=== PATIENT | female | born 1980 | race Caucasian/White ===

== ENCOUNTER 2024-10-19 08:09 | Observation (INO) | payer OTHER ==
--- OUTSIDE RECORDS SUMMARY | 2024-10-19 08:14 | XMS REPORT | Continuity of Care Document ---
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 19:53:00 130 mm[Hg] Priya Seybold - External Diastolic blood pressure 2023-05-03 19:53:00 94 mm[Hg] Priya Seybold - External Heart rate 2023-05-03 19:53:00 47 /min Priya Seybold - External Body temperature 2023-05-03 19:53:00 37.22 Monica Priya Seybold - External Respiratory rate 2023-05-03 19:53:00 20 /min Priya Seybold - External Body height 2023-05-03 19:53:00 167.6 cm Priya Seybold - External Body weight 2023-05-03 19:53:00 99.791 kg Pryia Seybold - External BMI 2023-05-03 19:53:00 35.51 kg/m2 Priya Seybold - External Oxygen saturation in Arterial blood by Pulse oximetry 2023-05-03 19:53:00 100 /min Priya Seybold - External Systolic blood pressure 2023-04-26 15:45:00 124 mm[Hg] Priya Seybold - External Diastolic blood pressure 2023-04-26 15:45:00 82 mm[Hg] Priya Seybold - External Heart rate 2023-04-26 15:45:00 79 /min Priya Seybold - External Body temperature 2023-04-26 15:45:00 36.5 Monica Priya Seybold - External Respiratory rate 2023-04-26 15:45:00 16 /min Priya Seybold - External Body height 2023-04-26 15:45:00 167.6 cm Priya Seybold - External Body weight 2023-04-26 15:45:00 98.158 kg Priya Seybold - External BMI 2023-04-26 15:45:00 34.93 kg/m2 Priya Seybold - External Oxygen saturation in Arterial blood by Pulse oximetry 2023-04-26 15:45:00 100 /min Priya Seybold - External Systolic blood pressure 2023-04-08 20:19:00 134 mm[Hg] Priya Seybold - External Diastolic blood pressure 2023-04-08 20:19:00 86 mm[Hg] Priya Seybold - External Heart rate 2023-04-08 20:19:00 87 /min Priya Seybold - External Body temperature 2023-04-08 20:19:00 36.11 Monica Priya Seybold - External Respiratory rate 2023-04-08 20:19:00 20 /min Priya Seybold - External Body height 2023-04-08 20:19:00 167.6 cm Priya Seybold - External Body weight 2023-04-08 20:19:00 100.245 kg Priya Seybold - External BMI 2023-04-08 20:19:00 35.67 kg/m2 Priya Seybold - External Oxygen saturation in Arterial blood by Pulse oximetry 2023-04-08 20:19:00 99 /min Priya Seybold - External Systolic blood pressure 2023-03-21 22:00:00 132 mm[Hg] Priya Seybold - External Diastolic blood pressure 2023-03-21 22:00:00 87 mm[Hg] Priya Seybold - External Heart rate 2023-03-21 22:00:00 80 /min Priya Seybold - External Body temperature 2023-03-21 22:00:00 36.83 Monica Priya Seybold - External Respiratory rate 2023-03-21 22:00:00 20 /min Priya Seybold - External Body height 2023-03-21 22:00:00 167.6 cm Priya Seybold - External Body weight 2023-03-21 22:00:00 102.059 kg Priya Seybold - External BMI 2023-03-21 22:00:00 36.32 kg/m2 Priya Seybold - External Oxygen saturation in Arterial blood by Pulse oximetry 2023-03-21 22:00:00 99 /min Priya Seybold - External Systolic blood pressure 2022-08-13 14:05:00 127 mm[Hg] Priya Seybold - External Diastolic blood pressure 2022-08-13 14:05:00 65 mm[Hg] Priya Seybold - External Heart rate 2022-08-13 14:05:00 76 /min Priya Seybold - External Body temperature 2022-08-13 14:05:00 37.11 Monica Priya Seybold - External Respiratory rate 2022-08-13 14:05:00 15 /min Priya Seybold - External Body height 2022-08-13 14:05:00 167.6 cm Priya Seybold - External Body weight 2022-08-13 14:05:00 108.41 kg Priya Seybold - External BMI 2022-08-13 14:05:00 38.58 kg/m2 Priya Seybold - External Oxygen saturation in Arterial blood by Pulse oximetry 2022-08-13 14:05:00 97 /min Priya Seybold - External Systolic blood pressure 2022-05-19 16:16:00 124 mm[Hg] Pirya Seybold - External Diastolic blood pressure 2022-05-19 16:16:00 79 mm[Hg] Priya Seybold - External Heart rate 2022-05-19 16:16:00 71 /min Priya Seybold - External Body temperature 2022-05-19 16:16:00 36.56 Monica Priya Seybold - External Respiratory rate 2022-05-19 16:16:00 14 /min Priya Seybold - External Body height 2022-05-19 16:16:00 167.6 cm Priya Seybold - External Body weight 2022-05-19 16:16:00 112.492 kg Priya Seybold - External BMI 2022-05-19 16:16:00 40.03 kg/m2 Priya Seybold - External Oxygen saturation in Arterial blood by Pulse oximetry 2022-05-19 16:16:00 99 /min Priya Seybold - External Systolic blood pressure 2022-05-14 14:09:00 120 mm[Hg] Priya Seybold - External Diastolic blood pressure 2022-05-14 14:09:00 79 mm[Hg] Priya Seybold - External Heart rate 2022-05-14 14:09:00 79 /min Priya Seybold - External Body temperature 2022-05-14 14:09:00 37.06 Monica Priya Seybold - External Respiratory rate 2022-05-14 14:09:00 14 /min Priya Seybold - External Body height 2022-05-14 14:09:00 167.6 cm Priya Seybold - External Body weight 2022-05-14 14:09:00 113.49 kg Priya Seybold - External BMI 2022-05-14 14:09:00 40.38 kg/m2 Priya Seybold - External Oxygen saturation in Arterial blood by Pulse oximetry 2022-05-14 14:09:00 99 /min Priya Seybold - External Systolic blood pressure 2022-04-16 14:10:00 138 mm[Hg] Priya Seybold - External Diastolic blood pressure 2022-04-16 14:10:00 90 mm[Hg] Priya Seybold - External Heart rate 2022-04-16 13:49:00 69 /min Priya Seybold - External Body temperature 2022-04-16 13:49:00 36.61 Monica Priya Seybold - External Respiratory rate 2022-04-16 13:49:00 14 /min Priya Seybold - External Body height 2022-04-16 13:49:00 167.6 cm Priya Seybold - External Body weight 2022-04-16 13:49:00 113.581 kg Priya Seybold - External BMI 2022-04-16 13:49:00 40.42 kg/m2 Priya Seybold - External Oxygen saturation in Arterial blood by Pulse oximetry 2022-04-16 13:49:00 99 /min Priya Seybold - External Procedures Procedure Date / Time Performed Performing Clinicia n Source CBC WITH DIFFERENTIAL 2024-10-05 00:00:00 Priya Seybold - External IRON AND TIBC 2024-10-05 00:00:00 Priya Nick - External VITAMIN B12 2024-10-05 00:00:00 Priya rapp - External Plan of Care Planned Activity Planned Date Details Comments Source Encounters Start Date/Time End Date/Time Encounter Type Admission Type Attending [facility] Care Department Encounter ID Source 2025-01-04 10:30:00 2025-01-04 10:30:00 Outpatient PIETRO DUBON PRIYA PHILLIPS [id number] Priya [facility] 2024-10-16 00:00:00 2024-10-16 00:00:00 Outpatient SUNNY PIETRO PHILLIPS [id number] Priya [facility] 2024-10-05 10:10:00 2024-10-05 10:10:00 Outpatient [id number] PRIYA PHILLIPS [id number] Priya [facility] 2024-10-05 09:30:00 2024-10-05 09:30:00 Outpatient SUNNY PIETRO PRIYA PHILLIPS [id number] [facility] 2024-08-24 15:00:00 2024-08-24 15:00:00 Outpatient TONY GONZALEZ [id number] Priya [facility] 2024-08-17 00:00:00 2024-08-17 00:00:00 Outpatient TONY GONZALEZ [id number] Priya [facility] 2024-08-13 00:00:00 2024-08-13 00:00:00 Outpatient TONY GONZALEZ [id number] [facility] 2024-08-07 15:30:00 2024-08-07 15:30:00 Outpatient TONY GONZALEZ [id number] Priya [facility] 2024-07-27 08:00:00 2024-07-27 08:00:00 Outpatient ADAMS OATES [id number] Priya [facility] 2024-07-16 15:20:00 2024-07-16 15:20:00 Outpatient PRIYA PHILLIPS [id number] Priya [facility] 2024-07-16 00:00:00 2024-07-16 00:00:00 Outpatient PRIYA PHILLIPS [id number] Priya [facility] 2024-07-11 15:30:00 2024-07-11 15:30:00 Outpatient TONY GONZALEZ PRIYA [id number] Priya [facility] 2024-07-03 00:00:00 2024-07-03 00:00:00 Outpatient TONY GONZALEZ PRIYA [id number] Priya [facility] 2024-06-25 00:00:00 2024-06-25 00:00:00 Outpatient TONY GONZALEZ PRIYA [id number] Priya [facility] 2024-06-22 14:40:00 2024-06-22 14:40:00 Outpatient NIMA FISHER PRIYA PHILLIPS [id number] Priya [facility] 2024-06-21 00:00:00 2024-06-21 00:00:00 Outpatient PRIYA PHILLIPS [id number] Priya [facility] 2024-06-08 15:00:00 2024-06-08 15:00:00 Outpatient NIMA FISHER PRIYA PHILLIPS [id number] Priya [facility] 2024-06-05 00:00:00 2024-06-05 00:00:00 Outpatient TONY GONZALEZ PRIYA PHILLIPS [id number] Priya [facility] 2024-06-01 00:00:00 2024-06-01 00:00:00 Outpatient PREPIETRO REINOSO PRIYA PHILLIPS [id number] Priya Seybold 2024-06-01 00:00:00 2024-06-01 00:00:00 Outpatient PREZAPIETRO Jackson PRIYA PHILLIPS [id number] Priya Seybold 2024-05-30 16:20:00 2024-05-30 16:20:00 Outpatient LAB90 PRIYA PHILLIPS [id number] Priya Seybold 2024-05-30 15:30:00 2024-05-30 15:30:00 Outpatient PREZAPIETRO Jackson PRIYA PHILLIPS [id number] Priya Seybold 2024-05-30 15:30:00 2024-05-30 15:30:00 Outpatient TONY GONZALEZ PRIYA PHILLIPS [id number] Priya Seybold 2024-05-30 08:05:00 2024-05-30 08:05:00 Outpatient LAB90 PRIYAALEK PHILLIPS [id number] Priya Seybirina 2024-05-30 00:00:00 2024-05-30 00:00:00 Outpatient PRIYA PRIYA [id number] Priya Seybirina 2024-05-25 00:00:00 2024-05-25 00:00:00 Outpatient TONY GONZALEZ PRIYA PHILLIPS [id number] Priya Oliverosybirina 2024-05-02 15:00:00 2024-05-02 15:00:00 Outpatient TONY GONZALEZ PRIYA PHILLIPS [id number] Priya Seybirina 2024-05-01 00:00:00 2024-05-01 00:00:00 Outpatient OATESADAMS BRADLEY [id number] Priya Seybirina 2024-04-25 15:30:00 2024-04-25 15:30:00 Outpatient TONY GONZALEZ PRIYA PHILLIPS [id number] Priya Oliverosybirina 2024-04-22 00:00:00 2024-04-22 00:00:00 Outpatient PREZAManuelPIETRO PRIYA PHILLIPS [id number] Priya Seybold 2024-04-21 00:00:00 2024-04-21 00:00:00 Outpatient PREZAS PIETRO PRIYA PHILLIPS [id number] Priya Seybold 2024-04-10 00:00:00 2024-04-10 00:00:00 Outpatient ADAMS OATES [id number] Priya Seybold 2024-04-05 15:00:00 2024-04-05 15:00:00 Outpatient ADAMS OATES [id number] Priya Seybold 2024-04-05 00:00:00 2024-04-05 00:00:00 Outpatient ADAMS OATES [id number] Priya Seybold 2024-03-28 14:00:00 2024-03-28 14:00:00 Outpatient LISA TONY PRIYA PHILLIPS [id number] Priya Seybold 2024-03-26 00:00:00 2024-03-26 00:00:00 Outpatient PREZAS, PIETRO PRIYA PHILLIPS [id number] Priya [facility] 2024-02-15 00:00:00 2024-02-15 00:00:00 Outpatient PREZAS, PIETRO PRIYA PRIYA [id number] Priya [facility] 2024-02-01 00:00:00 2024-02-01 00:00:00 Outpatient PREZAS, PIETRO PRIYA PHILLIPS [id number] Priya [facility] 2024-01-17 15:30:00 2024-01-17 15:30:00 Outpatient WHITEJANESSA PRIYA PHILLIPS [id number] Priya [facility] 2024-01-15 00:00:00 2024-01-15 00:00:00 Outpatient PREZAS, PIETRO [facility] [id number] [facility] 2024-01-11 00:00:00 2024-01-11 00:00:00 Outpatient PREZAS, PIETRO PRIYA PHILLIPS [id number] [facility] 2023-12-20 00:00:00 2023-12-20 00:00:00 Outpatient PREZAS, PIETRO PRIYA PHILLIPS [id number] [facility] 2023-12-05 08:30:00 2023-12-05 08:30:00 Outpatient VENNIX, RANI PRIYA PHILLIPS [id number] [facility] 2023-11-01 13:45:00 2023-11-01 13:45:00 Outpatient PREZAS, PIETRO PRIYA PHILLIPS [id number] Priya [facility] 2023-10-28 15:30:00 2023-10-28 15:30:00 Outpatient SANTOSH FERRARA [id number] Priya [facility] 2023-10-24 15:30:00 2023-10-24 15:30:00 Outpatient CHA ARREDONDO [id number] Priya [facility] 2023-10-20 00:00:00 2023-10-20 00:00:00 Outpatient PREZAS, PIETRO PHILLIPS [id number] Priya [facility] 2023-10-18 00:00:00 2023-10-18 00:00:00 Outpatient PREZASPIETRO PRIYA PHILLIPS [id number] Priya [facility] 2023-10-14 14:45:00 2023-10-14 14:45:00 Outpatient WHITEJANESSA MOHAN PR[facility]IPS [id number] [facility] 2023-10-14 14:45:00 2023-10-14 14:45:00 Outpatient WHITEJANESSA PRIYA PHILLIPS [id number] [facility] 2023-09-26 10:00:00 2023-09-26 10:00:00 Outpatient VENNJUSTICERANI PRIYA PHILLIPS [id number] Priya [facility] 2023-09-08 00:00:00 2023-09-08 00:00:00 Outpatient OMER TAMIA PHILLIPS [id number] [facility] 2023-09-02 00:00:00 2023-09-02 00:00:00 Outpatient WHITEJANESSA PRIYA PHILLIPS [id number] [facility] 2023-08-23 15:15:00 2023-08-23 15:15:00 Outpatient WHITE, JANESSA PRIYA PHILLIPS [id number] [facility] 2023-08-23 00:00:00 2023-08-23 00:00:00 Outpatient WHITEJANESSA PRIYA PHILLIPS [id number] [facility] 2023-08-13 13:30:00 2023-08-13 13:30:00 Outpatient TAMIA TELLO [id number] [facility] 2023-08-09 00:00:00 2023-08-09 00:00:00 Outpatient MD PRIYA MARINA [id number] [facility] 2023-08-04 00:00:00 2023-08-04 00:00:00 Outpatient PREZAS PIETRO PHILLIPS [id number] [facility] 2023-08-01 14:45:00 2023-08-01 14:45:00 Outpatient LABNu PHILLIPS [id number] Priya [facility] 2023-08-01 14:15:00 2023-08-01 14:15:00 Outpatient PREZASPIETRO [id number] Priya Oliverosybirina 2023-07-25 09:30:00 2023-07-25 09:30:00 Outpatient RANI COSME [facility]YA PHILLIPS [id number] [facility]23-07-11 14:05:00 2023-07-11 14:05:00 Outpatient LAB90 PRIYA PHILLIPS [id number] [facility] 2023-07-10 00:00:00 2023-07-10 00:00:00 Outpatient PREPIETRO REINOSO PRIYA PHILLIPS [id number] [facility] 2023-06-27 10:00:00 2023-06-27 10:00:00 Outpatient RANI COSME PRIYA PHILLIPS [id number] Priya [facility] 2023-06-24 14:20:00 2023-06-24 14:20:00 Outpatient PRIYA PHILLIPS [id number] Priya [facility] 2023-06-24 14:15:00 2023-06-24 14:15:00 Outpatient PRIYA PHILLIPS [id number] Priya [facility] 2023-06-24 13:30:00 2023-06-24 13:30:00 Outpatient AIYANA WHITE [id number] [facility] 2023-06-24 00:00:00 2023-06-24 00:00:00 Outpatient AIYANA WHITE [id number] Priya [facility] 2023-06-20 15:00:00 2023-06-20 15:00:00 Outpatient AIYANA WHITE [id number] [facility] 2023-06-13 00:00:00 2023-06-13 00:00:00 Outpatient PREZAManuel PIETRO PHILLIPS [id number] [facility] 2023-06-12 00:00:00 2023-06-12 00:00:00 Outpatient PREZAManuel PIETRO PHILLIPS [id number] Priya [facility] 2023-06-04 00:00:00 2023-06-04 00:00:00 Outpatient PREZAPIETRO Jackson [id number] Priya Nick 2023-05-19 00:00:00 2023-05-19 00:00:00 Outpatient PREPIETRO REINOSO PRIYA [id number] Priya Romero 2023-05-03 13:45:00 2023-05-03 13:45:00 Outpatient PIETRO DUBON PRIYA PHILLIPS [id number] Priya Romero 2023-04-28 00:00:00 2023-04-28 00:00:00 Outpatient FLORIN WARREN PRIYA PHILLIPS [id number] Priya Oliverosybirina 2023-04-27 00:00:00 2023-04-27 00:00:00 Outpatient PREZAPIETRO Jackson PRIYA PHILLIPS [id number] Priya [facility] 2023-04-26 10:45:00 2023-04-26 10:45:00 Outpatient LESLY PRIYA PHILLIPS [id number] Priya Romero 2023-04-26 10:00:00 2023-04-26 10:00:00 Outpatient FLORIN WARREN PRIYA PHILLIPS [id number] [facility] 2023-04-25 14:00:00 2023-04-25 14:00:00 Outpatient AIYANA WHITE [id number] Priya Oliver[facility] 2023-04-25 00:00:00 2023-04-25 00:00:00 Outpatient PRIYA PHILLIPS [id number] Priya ybirina 2023-04-21 15:15:00 2023-04-21 15:15:00 Outpatient PIETRO DUBON PRIYA PHILLIPS [id number] [facility] 2023-04-13 00:00:00 2023-04-13 00:00:00 Outpatient MD PRIYA MARINA [id number] Priya Seybold 2023-04-08 14:30:00 2023-04-08 14:30:00 Outpatient JOCELYN CRANDALL [id number] Priya Seybold 2023-03-23 00:00:00 2023-03-23 00:00:00 Outpatient PREPIETRO REINOSO PRIYA PHILLIPS [id number] [facility] 2023-03-22 00:00:00 2023-03-22 00:00:00 Outpatient PREZAS, PIETRO PHILLIPS [id number] [facility] 2023-03-21 16:40:00 2023-03-21 16:40:00 Outpatient LABNu PHILLIPS [id number] Priya [facility] 2023-03-21 16:00:00 2023-03-21 16:00:00 Outpatient PREZAS, PIETRO PHILLIPS [id number] [facility] 2023-03-17 00:00:00 2023-03-17 00:00:00 Outpatient PREZAS, PIETRO PHILLIPS [id number] [facility] 2023-02-20 00:00:00 2023-02-20 00:00:00 Outpatient PREZAS, PIETRO PHILLIPS PRIYA [id number] Priya [facility] 2023-02-11 08:00:00 2023-02-11 08:00:00 Outpatient PREZAS, PIETRO PHILLIPS PRIYA [id number] [facility] 2023-01-25 00:00:00 2023-01-25 00:00:00 Outpatient PREZAS, PIETRO PHILLIPS PRIYA [id number] Priya [facility] 2023-01-23 00:00:00 2023-01-23 00:00:00 Outpatient PREZAS, PIETRO PHILLIPS PRIYA [id number] Pri[facility] 2022-12-30 00:00:00 2022-12-30 00:00:00 Outpatient PREZAS, PITERO PHILLIPS PRIYA [id number] Priya [facility] 2022-12-10 00:00:00 2022-12-10 00:00:00 Outpatient PREZAS, PIETRO PHILLIPS PRIYA [id number] Priya Seybold 2022-10-31 00:00:00 2022-10-31 00:00:00 Outpatient PREZAS, PIETRO PHILLIPS PRIYA [id number] Priya Seybold 2022-10-28 00:00:00 2022-10-28 00:00:00 Outpatient PREZAS, PIETRO PRIYA PHILLIPS [id number] Pri[facility] 2022-09-06 00:00:00 2022-09-06 00:00:00 Outpatient PREZASPIETRO PRIYA [id number] Priya [facility] 2022-08-16 00:00:00 2022-08-16 00:00:00 Outpatient PREZAS, PIETRO PHILLIPS PRIYA [id number] Priya Seybirina 2022-08-13 09:45:00 2022-08-13 09:45:00 Outpatient LAB90 PRIYA PRIYA [id number] Priya [facility] 2022-08-13 09:00:00 2022-08-13 09:00:00 Outpatient PREZASPIETRO PRIYA [id number] Priya [facility] 2022-08-02 00:00:00 2022-08-02 00:00:00 Outpatient PREZAS, PIETRO PHILLIPS PRIYA [id number] Priya [facility] 2022-08-02 00:00:00 2022-08-02 00:00:00 Outpatient SHERICEVLADIMIR PRIYA PRIYA [id number] [facility] 2022-07-16 00:00:00 2022-07-16 00:00:00 Outpatient PREZASPIETRO PRIYA [id number] Priya [facility] 2022-07-01 00:00:00 2022-07-01 00:00:00 Outpatient PREZAS, PIETRO PHILLIPS PRIYA [id number] Priya [facility] 2022-06-30 16:15:00 2022-06-30 16:15:00 Outpatient KALISABEL PRIYA PRIYA [id number] Priya [facility] 2022-06-29 08:15:00 2022-06-29 08:15:00 Outpatient LAB90 PRIYA PRIYA [id number] Priya [facility] 2022-06-23 00:00:00 2022-06-23 00:00:00 Outpatient PREZASPIETRO PRIYA PHILLIPS [id number] Priya [facility] 2022-06-17 00:00:00 2022-06-17 00:00:00 Outpatient TELMA MAYA [id number] [facility] 2022-05-31 10:45:00 2022-05-31 10:45:00 Outpatient PREZAPIETRO Jackson PRIYA [id number] Priya [facility] 2022-05-26 13:30:00 2022-05-26 13:30:00 Outpatient AMELIE VALLECILLO PRIYA PHILLIPS [id number] Priya Oliveros[facility] 2022-05-26 12:45:00 2022-05-26 12:45:00 Outpatient TELMA MAYA [facility]YA PHILLIPS [id number] [facility] 2022-05-19 10:30:00 2022-05-19 10:30:00 Outpatient PREZAPIETRO Jackson PRIYA PHILLIPS [id number] Priya Oliverosirina 2022-05-17 00:00:00 2022-05-17 00:00:00 Outpatient PREZAS, PIETOR PRIYA PHILLIPS [id number] [facility] 2022-05-14 08:55:00 2022-05-14 08:55:00 Outpatient LAB90 PRIYA PHILLIPS [id number] [facility] 2022-05-14 08:15:00 2022-05-14 08:15:00 Outpatient PREZAManuel, PIETRO PRIYA PHILLIPS [id number] Priya [facility] 2022-05-14 00:00:00 2022-05-14 00:00:00 Outpatient PREZAS, PIETRO PRIYA PHILLIPS [id number] [facility] 2022-05-12 00:00:00 2022-05-12 00:00:00 Outpatient PREZAS, PIETRO PRIYA PHILLIPS [id number] Priya [facility] 2022-05-12 00:00:00 2022-05-12 00:00:00 Outpatient PREZASPIETRO PRIYA PHILLIPS [id number] [facility] 2022-05-11 08:15:00 2022-05-11 08:15:00 Outpatient LAB90 PRIYA PHILLIPS [id number] [facility] 2022-04-16 08:00:00 2022-04-16 08:00:00 Outpatient PREZAS, PIETRO PRIYA PHILLIPS [id number] [facility] History and Physical Notes Date/Time Note Provider Source 2024-04-05 15:16:26 Priya Romero Gastroenterology consult note Referring Provider: Pietro Dubon DO C: I am seeing Priscilla Peng at Pietro Dubon DO request for my opinion on Chief Complaint Patient presents with Abdominal Pain Iron deficiency anemia secondary to inadequate dietary iron intake, GERD, nausea, pt state that she have passed out do to her abdominal symptom Colon Cancer Screening Family history of colon cancer Diarrhea CC: Chief Complaint Patient presents with Abdominal Pain Iron deficiency anemia secondary to inadequate dietary iron intake, GERD, nausea, pt state that she have passed out do to her abdominal symptom Colon Cancer Screening Family history of colon cancer Diarrhea HPI: Patient is a 44 year old female here for evaluation of colon cancer screening. Patient's mother was diagnosed with colon cancer in her 40s. The patient has not had a colonoscopy. She denies overt GI bleeding and unintentional weight loss. She also has iron deficiency anemia. She denies vaginal bleeding, overt GI bleeding, and hematuria. She has never been tested for celiac disease nor H. pylori. She has bowel movements once every 2 to 3 days. The stool is [place] 3 or 4 and she does not have to strain. She had an acute episode of diarrhea this week which has resolved. Blood thinners: No Prior colonoscopy: None Family history: First degree relative with colorectal cancer yes mother diagnosed with colorectal cancer in her 40s Past Medical History: Diagnosis Date Acquired hypothyroidism Class 3 severe obesity due to excess calories without serious comorbidity with body mass index (BMI) of 40.0 to 44.9 in adult ([facility]) Prediabetes 05/14/2022 Primary hypertension Past Surgical History: Procedure Laterality Date TOTAL ABDOMINAL HYSTERECT W/WO RMVL TUBE OVARY Social History Tobacco Use Smoking status: Never Smokeless tobacco: Never Vaping Use Vaping status: Never Used Substance Use Topics Alcohol use: Not Currently Drug use: Never Family History Problem Relation Name Age of Onset Colon Cancer Mother Varicosities Mother Diabetes Mellitus Mother Thyroid Cancer Mother No Known Problems Father Thyroid Disease Maternal Grandmother No Known Allergies Current Outpatient Medications on File Prior to Visit Medication Sig Dispense Refill Acetaminophen (Tylenol) 325 MG oral Tablet tablet Take 2 tablets (650 mg total) by mouth every 6 hours as needed for pain. Celecoxib 200 MG oral Capsule Take 1 capsule (200 mg total) by mouth daily. Cyanocobalamin (B-12) 1000 MCG oral Tablet Take 1 tablet by mouth daily. Ferrous Sulfate (Iron) 325 (65 Fe) MG oral Tablet Take 1 tablet (325 mg total) by mouth daily (with breakfast). 90 tablet 3 Levothyroxine Sodium 112 MCG oral Tablet Take 1 tablet (112 mcg total) by mouth daily. 90 tablet 1 Lisinopril 10 MG oral Tablet take 1 tablet by mouth every day 90 tablet 1 Loratadine (Claritin) 10 MG oral tablet Take 1 tablet (10 mg total) by mouth daily. 30 tablet 0 Metformin HCl 500 MG oral Tablet Take 1 tablet (500 mg total) by mouth in the morning and 1 tablet (500 mg total) in the evening. Take with meals. 180 tablet 1 Pantoprazole Sodium 40 MG oral Tablet Delayed Response Take 1 tablet (40 mg total) by mouth daily Take 30 minutes before breakfast. 90 tablet 0 Gabapentin 100 MG oral Capsule TAKE 1 CAPSULE (100 MG TOTAL) BY MOUTH 2 TIMES DAILY NEEDED. (Patient not taking: Reported on 04/05/2024.) 60 capsule 3 Guaifenesin (Mucinex) 600 MG oral Tablet 12 Hour Sustained Release Take 2 tablets (1,200 mg total) by mouth 2 times daily. (Patient not taking: Reported on 04/05/2024.) 28 tablet 0 No current facility-administered medications on file prior to visit. ROS: General: (-) fever (-) chills, (-) night sweats, (-) weight loss, (-) weight gain, (-) fatigue HEENT: (-) headache, (-) visual changes, (-) hearing loss, (-) rhinorrhea, (-) sore throat Cardiac: (-) chest pain, (-) palpitations, (-) syncope Respiratory: (-) cough, (-) shortness of breath, (-) wheezing Gastrointestinal: as per HPI Urinary: (-) frequency, (-) urgency, (-) dysuria, (-) hematuria Musculoskeletal: (-) myalgias, (-) arthralgias Neurological: (-) muscular weakness, (-) tingling, (-) numbness Hematology: (-) easy bruising, (-) bleeding, (-) lymphadenopathy Skin: (-) rashes, (-) itching, (-) bruising PHYSICAL EXAM: BP 146/87 | Pulse 70 | Temp 97.5 ?F (36.4 ?C) (Oral) | Resp 18 | Ht 5' 6" (1.676 m) | Wt 232 lb 12.8 oz (105.6 kg) | LMP (LMP Unknown) | BMI 37.57 kg/m? Body mass index is 37.57 kg/m?. General Appearance: Awake, alert female in no apparent distress HEENT: NC/AT, PERRL, EOMI, MMM CV: RRR, without murmur, gallop, or rubs. No edema. Pulm: Clear to auscultation. No wheezing, rales, or rhonchi GI: soft, NT/ND, +BS, no organomegaly. MSK: no redness, warmth, or swelling of the joints. Normal ROM. Neuro: A&Ox3. Moves all extremities equally. Sensation grossly intact. Skin: no rashes or lesions Psych: normal mood and affect LABS: CBC Results for orders placed or performed in visit on 08/01/23 CBC WITH DIFFERENTIAL Collection Time: 08/01/23 2:39 PM Result Value Ref Range WBC 8.0 3.6 - 12.5 10*3/uL Red Blood Cell 3.15 (Low) 3.77 - 5.28 10*6/uL Hemoglobin 9.2 (Low) 11.1 - 15.9 g/dL Hematocrit 28.1 (Low) 34.0 - 46.6 % MCV 89.2 79.0 - 97.0 fL MCH 29.2 26.6 - 33.0 pg MCHC 32.7 31.5 - 35.7 g/dL RDW-CV 14.0 11.6 - 15.4 % Platelets 311 150 - 450 10*3/uL Neutrophils 49 Not estab. % Lymphs 41 Not estab. % Monocytes 8 Not estab. % EOS 1.5 Not estab. % BASOS 0.4 Not estab. % Immature Granulocytes 0.3 Not estab. % Neutrophils Absolute 3.90 1.40 - 7.00 10*3/uL Lymphs Absolute 3.26 (High) 0.70 - 3.10 10*3/uL Monocytes Absolute 0.62 0.10 - 0.90 10*3/uL EOS Absolute 0.12 0.00 - 0.40 10*3/uL Baso Absolute 0.03 0.00 - 0.20 10*3/uL Immature Grans Abs 0.02 0.00 - 0.10 10*3/uL , CMP Results for orders placed or performed in visit on 03/21/23 COMP. METABOLIC PANEL (14) Collection Time: 03/21/23 5:05 PM Result Value Ref Range Glucose 102 (High) 65 - 99 mg/dL BUN 10 8 - 27 mg/dL Creatinine 0.70 0.56 - 1.00 mg/dL EGFR 111 >=59 BUN/CREAT Ratio 14 9 - 28 Sodium 138 134 - 143 mmol/L Potassium 3.8 3.7 - 5.1 mmol/L Chloride 104 100 - 108 mmol/L Carbon Dioxide, Total 30 21 - 32 mmol/L Calcium 8.8 8.7 - 10.1 mg/dL Total Protein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
[2024-10-19] MEDS ORDERED: ONDANSETRON 4 MG/2 ML VIAL ONE (08:38)
[2024-10-19] MEDS ORDERED: NA CHLORIDE 0.9% 1,000 ML ONE ×2 (08:39→11:24)
[2024-10-19] MEDS ORDERED: ASPIRIN 81 MG CHEWABLE TABLET ONE (08:39)
[2024-10-19] MEDS ORDERED: MORPHINE 4 MG/ML SYR ONE (08:39)
[2024-10-19 08:45] LABS: Hematocrit 37.1 % (36.0-45.0); Hemoglobin 12.2 g/dL (12.0-15.0); MCH 26.0 pg (27.0-35.0); MCHC 33.0 g/dL (32.0-36.0); MCV 78.8 fL (80-100); RBC Red Blood Cell Count 4.70 M/uL (3.86-4.86); White Blood Count 10.00 thou/uL (4.3-10.9)
[2024-10-19 08:46] LABS: Absolute Lymphocytes (CBC) 2.4 K/uL (0.7-4.9); MPV 10.9 fL (7.6-11.3); Nucleated RBC Absolute Count 0.0 (0-0); Nucleated Red Blood Cells % 0.1 % (0-0)
[2024-10-19 09:05] LABS: ALT/SGPT 18.0 U/L (13-56); AST/SGOT 18.0 U/L (15-37); Albumin 4.4 g/dL (3.4-5.0); Albumin/Globulin Ratio 1.2 (1.1-1.8); Alkaline Phosphatase 85.0 U/L (45-117); Anion Gap 13.5 mEq/L (5.0-15.0); BUN Blood Urea Nitrogen 16.0 mg/dL (7-18); Globulin 3.7 g/dL (2.3-3.5); Glucose Level 132.0 mg/dL (74-106); NT PRO-BNP 71.0 pg/mL (<125); Potassium 3.5 mEq/L (3.5-5.1); Troponin High Sensitivity 7.0 pg/mL (<58.9)
--- NOTE | 2024-10-19 09:07 | RAD REPORT ---
EXAM: Chest Single View HISTORY: 44 years Female CHEST PAIN COMPARISON: No prior exams FINDINGS: LUNGS/PLEURA: The lungs are clear. No pleural effusions or pneumothorax. No pulmonary edema. CARDIAC/MEDIASTINUM: The cardiac silhouette is within normal limits. UPPER ABDOMEN: No significant abnormality. BONES: No acute abnormality. LINES/TUBES/OTHER: N/A IMPRESSION: No evidence of acute cardiopulmonary disease.
[2024-10-19] MEDS ORDERED: PROMETHAZINE INJ 25 MG/ML AMP ONE (09:09)
--- NOTE | 2024-10-19 10:23 | ER ---
Nurse's Notes [facility] [place] Name: Priscilla Peng Age: 44 yrs Sex: Female : 1980 Arrival Date: 10/19/2024 Time: 08:09 Bed 6 Private MD: Diagnosis: Other specified noninfective gastroenteritis and colitis;Nausea with vomiting, unspecified Presentation: 10/19 08:23 Chief complaint: Patient states: CP x "A WHILE", CARDIAC STENT 2 WK AGO, RECENT bp NAUSEA/VOMITING. Coronavirus screen: At this time, the client does not indicate any symptoms associated with coronavirus-19. Ebola Screen: No symptoms or risks identified at this time. Initial Sepsis Screen: Does the patient meet any 2 criteria? No. Patient's initial sepsis screen is negative. Does the patient have a suspected source of infection? No. Patient's initial sepsis screen is negative. Risk Assessment: Do you want to hurt yourself or someone else? Patient reports no desire to harm self or others. Onset of symptoms is unknown. 08:23 Method Of Arrival: Wheelchair bp 08:23 Acuity: RAUL 3 bp Triage Assessment: 12:28 General: Appears in no apparent distress. Behavior is calm, cooperative, appropriate ll1 for age. Pain: Complains of pain in abdomen Pain currently is 5 out of 10 on a pain scale. Quality of pain is described as aching, crampy. Cardiovascular: Chest pain is denied. GI: Reports lower abdominal pain, upper abdominal pain, cramping, gaseousness, indigestion, nausea, vomiting. PROPOSAL COORDINATOR: 11:58 LMP N/A - control method, Not ll1 Historical: - Allergies: 08:24 No Known Allergies; bp - PMHx: 08:24 Hypertensive disorder; bp - Immunization history:: Adult Immunizations up to date. - Infectious Disease History:: Denies. - Social history:: Smoking status: unknown. Screenin:53 [facility] ED Fall Risk Assessment (Adult) History of falling in the last 3 months, ll1 including since admission No falls in past 3 months (0 pts) Confusion or Disorientation No (0 pts) Intoxicated or Sedated No (0 pts) Impaired Gait No (0 pts) Mobility Assist Device Used Yes (1 pt) Altered Elimination No (0 pt) Score/Fall Risk Level 0 - 2 = Low Risk Maintained a safe environment, Hourly rounding (assess needs \\T\\ fall precautionary measures) done. Abuse screen: Denies threats or abuse. Nutritional screening: No deficits noted. Tuberculosis screening: No symptoms or risk factors identified. Assessment: 08:53 Reassessment: No changes from previously documented assessment. Patient and/or family ll1 updated on plan of care and expected duration. Pain level reassessed. 09:45 Reassessment: No changes from previously documented assessment. Patient and/or family ll1 updated on plan of care and expected duration. Pain level reassessed. Patient is alert, oriented x 3, equal unlabored respirations, skin warm/dry/pink. 10:54 Reassessment: No changes from previously documented assessment. Patient and/or family ll1 updated on plan of care and expected duration. Pain level reassessed. Patient is alert, oriented x 3, equal unlabored respirations, skin warm/dry/pink. 11:56 Reassessment: No changes from previously documented assessment. Patient and/or family ll1 updated on plan of care and expected duration. Pain level reassessed. Patient is alert, oriented x 3, equal unlabored respirations, skin warm/dry/pink. 12:27 Reassessment: No changes from previously documented assessment. Patient and/or family ll1 updated on plan of care and expected duration. Pain level reassessed. Patient states feeling better. Patient states symptoms have improved. 12:28 GI: Bowel sounds present X 4 quads. Abd is soft and non tender X 4 quads. ll1 14:48 Reassessment: No changes from previously documented assessment. Patient and/or family ll1 updated on plan of care and expected duration. Pain level reassessed. Patient is alert, oriented x 3, equal unlabored respirations, skin warm/dry/pink. 15:31 Reassessment: No changes from previously documented assessment. Patient and/or family ll1 updated on plan of care and expected duration. Pain level reassessed. Vital Signs: 08:23 BP 142 / 119; Pulse 117; Resp 20; Temp 97.7; Pulse Ox 100% ; Weight 85.73 kg; Height 5 bp ft. 6 in. ; 08:52 BP 113 / 86; Pulse 72; Resp 17; Pulse Ox 100% on R/A; Pain 9/10; ll1 10:54 BP 108 / 74; Pulse 105; Resp 18; ll1 11:56 BP 126 / 80; Pulse 76; Resp 17; ll1 13:23 BP 124 / 88; Pulse 89; Resp 17; ll1 14:09 BP 123 / 88; Pulse 99; ll1 15:30 BP 119 / 84; Pulse 88; Resp 16; Pulse Ox 100% ; ll1 08:23 Body Mass Index 30.51 (85.73 kg, 167.64 cm) bp 08:52 Pain Scale: Adult ll1 10:54 scant amount of blood in vomitus, FIELD ARTILLERY TARGETING TECHNICIAN informed. ll1 ED Course: 08:11 Patient arrived in ED. im 08:11 Henri Lopez FNP-C is PHCP. dr5 08:11 Kang Lee MD is Attending Physician. dr5 08:12 Provided Education on: ER procedures and process. ll1 08:18 Lopez Prater, RN is Primary Nurse. bp 08:24 Triage completed. bp 08:24 Arm band placed on. bp 08:45 Initial lab(s) drawn, by [facility], sent to lab. Inserted saline lock: 22 gauge in left 1 antecubital area, using aseptic technique. Blood collected. Flushed with 10 mL NS. 08:54 Chest Single View XRAY In Process Unspecified. EDMS 09:14 Primary Nurse role handed off by Lopez Prater, PAULA hb 09:14 Marshall Stacy, PAULA is Primary Nurse. hb 11:32 CT Abd/Pelvis - IV Contrast Only In Process Unspecified. EDMS 11:55 Malcom Beal is Hospitalizing Provider. dr5 11:57 Patient has correct armband on for positive identification. Bed in low position. Client ll1 placed on continuous cardiac and pulse oximetry monitoring. NIBP monitoring applied. pvc monitor on. 11:57 No provider procedures requiring assistance completed. ll1 13:24 Patient admitted, IV remains in place. ll1 Administered Medications: 08:52 Drug: NS 0.9% IV 1000 ml IV at 1000 ml once; to be given as a bolus over 60 minutes ll1 Route: IV; Rate: 1000 ml; Site: left antecubital; 10:53 Follow up: Response: No adverse reaction; IV Status: Completed infusion; IV Intake: ll1 1000ml 08:52 Drug: morphine IVP or IV 4 mg IVP once over 4 mins Route: IVP; Infused Over: 4 mins; ll1 Site: left antecubital; 09:13 Follow up: Response: No adverse reaction; Pain is decreased; RASS: Alert and Calm (0) hb 08:52 Drug: Ondansetron IVP 4 mg IVP once; over 2 minutes Route: IVP; Site: left antecubital; ll1 09:13 Follow up: Response: No adverse reaction; Nausea unchanged hb 09:13 Drug: promethazine 25 mg IVP once Route: IVP; Site: left antecubital; hb 10:53 Follow up: Response: No adverse reaction; Vomiting unchanged ll1 10:53 Drug: GI Cocktail without - (Maalox PO 30 ml, Lidocaine Mucous Membrane 2 % 15 ll1 ml) PO once Route: PO; 11:26 Follow up: Response: No adverse reaction; Nausea unchanged ll1 10:54 Not Given (vomiting): aspirinchewable tablet 324 mg PO once; 81 mg tablets x 4 ll1 11:54 Drug: NS 0.9% IV 1000 ml IV at 100 ml/hr once; to be given as a bolus over 60 minutes hb Route: IV; Rate: 100 ml/hr; Site: left antecubital; 14:48 Follow up: Response: No adverse reaction; IV Status: Infusion continued upon admission; ll1 IV Intake: 200ml 11:54 Drug: Droperidol IVP 1.25 mg IVP once Route: IVP; Site: left antecubital; hb 12:27 Follow up: Response: No adverse reaction; Pain is decreased; Nausea is decreased; RASS: ll1 Alert and Calm (0) Medication: 11:57 VIS not applicable for this client. ll1 Intake: 10:53 IV: 1000ml; Total: 1000ml. ll1 14:48 IV: 200ml; Total: 1200ml. ll1 Outcome: 10:23 Discharge ordered by MD. dr5 11:56 Decision to Hospitalize by Provider. dr5 12:28 Condition: stable ll1 12:28 Instructed on the need for admit, 14:44 Admitted to Med/surg accompanied by tech, via wheelchair, room 216, with chart, Report ll1 called to faxed to 2nd 15:31 Patient left the ED. ll1 Signatures: Dispatcher [employer] EDIL Montserrat Perez RN RN Lopez Zamora RN RN bp Marshall Stacy RN RN ll1 Reji, Gisele Lopez, Henri, REAL ESTATE BROKER ASSOCIATE-C REAL ESTATE BROKER ASSOCIATE-Cdr5
--- NOTE | 2024-10-19 10:23 | EDPHYS ---
Physician Documentation [facility] Name: Priscilla Peng Age: 44 yrs Sex: Female : 1980 Arrival Date: 10/19/2024 Time: 08:09 Bed 6 Private MD: ED Physician Kang Lee HPI: 10/19 10:47 This 44 yrs old Female presents to ER via Wheelchair with complaints of dr5 Abdominal Pain, Nausea/Vomiting, Palpitations, Chest Pain. 10:47 The patient presents with abdominal pain that is diffuse. Onset: The symptoms/episode dr5 began/occurred 2 day(s) ago. Patient is a 44 old female with history of hypertension coming in with 2 days of nausea, vomiting. Patient reports that Dr. Montenegro did a cardiac stent on her 2 weeks ago. Patient states that she had 1 follow-up last Tuesday with Dr. Montenegro. Patient reports that she has a dental infection that is causing her not to be to eat or drink. Patient states that she has not eaten in the past month. Patient states that she went to her family doctor for the same complaints and was given medication to help with nausea. Patient reports that she has not seen a GI doctor because she needed to get her cardiology issues covered first. Patient states that she is not able to keep down liquid medication well.. CAM SPECIALIST: 11:58 LMP N/A - control method, Not ll1 Historical: - Allergies: 08:24 No Known Allergies; bp - PMHx: 08:24 Hypertensive disorder; bp - Immunization history:: Adult Immunizations up to date. - Infectious Disease History:: Denies. - Social history:: Smoking status: unknown. ROS: 10:47 Constitutional: as per hpi dr5 Exam: 10:47 Constitutional: This is a well developed, well nourished patient who is awake, alert, dr5 and in no acute distress. Head/Face: Normocephalic, atraumatic. Eyes: Pupils equal round and reactive to light, extra-ocular motions intact. Lids and lashes normal. Conjunctiva and sclera are non-icteric and not injected. Cornea within normal limits. Periorbital areas with no swelling, redness, or edema. Neck: Trachea midline, no thyromegaly or masses palpated, and no cervical lymphadenopathy. Supple, full range of motion without nuchal rigidity, or vertebral point tenderness. No Meningismus. Chest/axilla: Normal chest wall appearance and motion. Nontender with no deformity. No lesions are appreciated. Cardiovascular: Regular rate and rhythm with a normal S1 and S2. Normal PMI, no JVD. No pulse deficits. Respiratory: Lungs have equal breath sounds bilaterally, clear to auscultation. No rales, rhonchi or wheezes noted. No increased work of breathing, no retractions or nasal flaring. Abdomen/GI: Soft, non-tender, non-distended Back: No spinal tenderness. No costovertebral tenderness. Full range of motion. Skin: Warm, dry with normal turgor. Normal color with no rashes, no lesions, and no evidence of cellulitis. MS/ Extremity: Pulses equal, no cyanosis. Neurovascular intact. Full, normal range of motion. Neuro: Awake and alert, GCS 15, oriented to person, place, time, and situation. Cranial nerves II-XII grossly intact. Motor strength 5/5 in all extremities. Sensory grossly intact. Cerebellar exam normal. Normal gait. Vital Signs: 08:23 BP 142 / 119; Pulse 117; Resp 20; Temp 97.7; Pulse Ox 100% ; Weight 85.73 kg; Height 5 bp ft. 6 in. ; 08:52 BP 113 / 86; Pulse 72; Resp 17; Pulse Ox 100% on R/A; Pain 9/10; ll1 10:54 BP 108 / 74; Pulse 105; Resp 18; ll1 11:56 BP 126 / 80; Pulse 76; Resp 17; ll1 13:23 BP 124 / 88; Pulse 89; Resp 17; ll1 14:09 BP 123 / 88; Pulse 99; ll1 15:30 BP 119 / 84; Pulse 88; Resp 16; Pulse Ox 100% ; ll1 08:23 Body Mass Index 30.51 (85.73 kg, 167.64 cm) bp 08:52 Pain Scale: Adult ll1 10:54 scant amount of blood in vomitus, PILOT CONTROL OPERATOR informed. ll1 MDM: 08:11 Medical Screening Exam initiated dr5 10:47 Differential diagnosis: gastritis, gastroesophageal reflux disease, non-specific abd dr5 pain, pancreatitis. Data reviewed: vital signs, nurses notes, lab test result(s), amylase and lipase, cardiac enzymes, troponin i, CBC, white blood cell count, hemoglobin, hematocrit, platelets, electrolytes, sodium, potassium, chloride, serum bicarbonate, BUN, creatinine, serum glucose, EKG, radiologic studies, plain films. Consideration of Admission/Observation Escalation of care including admission/observation considered. As close considered patient found to have elevated troponin or abnormal EKG.. I considered the following discharge prescriptions or medication management in the emergency department I discussed and recommended Over The Counter medications, Medications were administered in the Emergency Department. See MAR Upon initial assessment, I offered patient GI cocktail. Patient states that her stomach hurts too bad to take medication. On discharge, again offered patient GI cocktail and states that she would try it. I believe this is gastritis and patient would benefit from GI cocktail as well as PPI.. Historians other than the Patient: Daughter/Son: Daughter, mother. Care significantly affected by the following chronic conditions: Hypertension. Care significantly affected by the following Social Determinants of Health: Poor access to healthcare and/or lack of insurance, Poor access to transportation, Problems related to employment. Scoring Tools HEART Score: History: ECG: Age: Risk Factors: Troponin: Total Score = 0. Counseling: I had a detailed discussion with the patient and/or guardian regarding the historical points, exam findings, and any diagnostic results supporting the discharge/admit diagnosis, the presence of at least one elevated blood pressure reading (>120/80) during this emergency department visit. Counseling: I had a detailed discussion with the patient and/or guardian regarding lab results, radiology results, the need for outpatient follow up, for definitive care, a family practitioner, to return to the emergency department if symptoms worsen or persist or if there are any questions or concerns that arise at home. Medication response: I stood in room while patient attempted to GI cocktail. Patient put it in her mouth and immediately spit it out next in the trash can and then continue to dry heave. No blood noted.. 10:56 ED course: Will get CT abdomen pelvis of the patient and based on that likely admission dr5 for p.o. intolerance. 10:59 ED course: Patient reports continued nausea and spite of Zofran and promethazine given. dr5 Patient mother at bedside with trash can, daughter continuously coming out to get help for patient, and father at bedside as well. . 11:56 Consideration of Admission/Observation Patient was admitted/placed on observation. ED dr5 course: Droperidol given with normal saline at 100/hr. patient found to have nontoxic colitis. Patient will be hospitalized for p.o. intolerance. Patient is requesting apple juice.. 10/19 08:25 Order name: CBC with Diff; Complete Time: 08:52 dr5 10/19 08:25 Order name: NT PRO-BNP; Complete Time: 09:08 dr5 10/19 08:25 Order name: Troponin HS; Complete Time: 09:08 dr5 10/19 08:25 Order name: CMP; Complete Time: 09:08 dr5 10/19 08:52 Order name: Lipase; Complete Time: 09:14 dr5 10/19 14:20 Order name: Basic Metabolic Panel EDMS 10/19 14:20 Order name: Basic Metabolic Panel EDMS 10/19 14:20 Order name: Basic Metabolic Panel EDMS 10/19 14:20 Order name: Basic Metabolic Panel EDMS 10/19 14:20 Order name: Basic Metabolic Panel EDMS 10/19 14:20 Order name: Basic Metabolic Panel EDMS 10/19 14:20 Order name: CBC with Automated Diff EDMS 10/19 14:20 Order name: CBC with Automated Diff EDMS 10/19 14:20 Order name: CBC with Automated Diff EDMS 10/19 14:20 Order name: CBC with Automated Diff EDMS 10/19 14:20 Order name: CBC with Automated Diff EDMS 10/19 14:20 Order name: CBC with Automated Diff EDMS 10/19 14:20 Order name: Magnesium EDMS 10/19 14:20 Order name: Magnesium EDMS 10/19 14:20 Order name: Magnesium EDMS 10/19 14:20 Order name: Magnesium EDMS 10/19 14:20 Order name: Magnesium EDMS 10/19 14:20 Order name: Magnesium EDMS 10/19 14:20 Order name: Phosphorus EDMS 10/19 14:20 Order name: Phosphorus EDMS 10/19 14:20 Order name: Phosphorus EDMS 10/19 14:20 Order name: Phosphorus EDMS 10/19 14:20 Order name: Phosphorus EDMS 10/19 14:20 Order name: Phosphorus EDMS 10/19 14:20 Order name: Troponin High Sensitivity EDMS 10/19 14:20 Order name: Troponin High Sensitivity EDMS 10/19 14:20 Order name: Troponin High Sensitivity EDMS 10/19 08:25 Order name: Chest Single View XRAY; Complete Time: 09:08 dr5 10/19 10:56 Order name: CT Abd/Pelvis - IV Contrast Only; Complete Time: 11:50 dr5 10/19 14:20 Order name: CONS Physician Consult EDMS 10/19 08:25 Order name: Cardiac monitoring; Complete Time: 08:52 dr5 10/19 08:25 Order name: EKG - Nurse/Tech; Complete Time: 08:52 dr5 10/19 08:25 Order name: IV Saline Lock; Complete Time: 08:32 dr5 10/19 08:25 Order name: Labs collected and sent; Complete Time: 08:32 dr5 10/19 08:25 Order name: O2 Per Protocol; Complete Time: 08:32 dr5 10/19 08:25 Order name: O2 Sat Monitoring; Complete Time: :32 dr5 EC:48 Rate is 76 beats/min. Rhythm is regular. QRS [place] is Normal. SD interval is normal at dr5 144 msec. QRS interval is normal at 98 msec. QT interval is normal at 382 msec. Administered Medications: 08:52 Drug: NS 0.9% IV 1000 ml IV at 1000 ml once; to be given as a bolus over 60 minutes ll1 Route: IV; Rate: 1000 ml; Site: left antecubital; 10:53 Follow up: Response: No adverse reaction; IV Status: Completed infusion; IV Intake: ll1 1000ml 08:52 Drug: morphine IVP or IV 4 mg IVP once over 4 mins Route: IVP; Infused Over: 4 mins; ll1 Site: left antecubital; 09:13 Follow up: Response: No adverse reaction; Pain is decreased; RASS: Alert and Calm (0) hb 08:52 Drug: Ondansetron IVP 4 mg IVP once; over 2 minutes Route: IVP; Site: left antecubital; ll1 09:13 Follow up: Response: No adverse reaction; Nausea unchanged hb 09:13 Drug: promethazine 25 mg IVP once Route: IVP; Site: left antecubital; hb 10:53 Follow up: Response: No adverse reaction; Vomiting unchanged ll1 10:53 Drug: GI Cocktail without - (Maalox PO 30 ml, Lidocaine Mucous Membrane 2 % 15 ll1 ml) PO once Route: PO; 11:26 Follow up: Response: No adverse reaction; Nausea unchanged ll1 10:54 Not Given (vomiting): aspirinchewable tablet 324 mg PO once; 81 mg tablets x 4 ll1 11:54 Drug: NS 0.9% IV 1000 ml IV at 100 ml/hr once; to be given as a bolus over 60 minutes hb Route: IV; Rate: 100 ml/hr; Site: left antecubital; 14:48 Follow up: Response: No adverse reaction; IV Status: Infusion continued upon admission; ll1 IV Intake: 200ml 11:54 Drug: Droperidol IVP 1.25 mg IVP once Route: IVP; Site: left antecubital; hb 12:27 Follow up: Response: No adverse reaction; Pain is decreased; Nausea is decreased; RASS: ll1 Alert and Calm (0) Disposition: 16:31 Co-signature as Attending Physician, Kang Lee MD I agree with the assessment and jr plan of care. Disposition Summary: 10/19/24 11:56 Hospitalization Ordered Notes: Hospitalization Status: Inpatient Admission dr5 Provider: Malcom Beal dr5 Location: Telemetry/MedSurg (observation)(10/19/24 11:56) dr5 Condition: Stable(10/19/24 11:56) dr5 Problem: new dr5 Symptoms: have worsened dr5 Bed/Room Type: Standard dr5 Room Assignment: 216(10/19/24 15:00) ll1 Diagnosis - Other specified noninfective gastroenteritis and colitis dr5 - Nausea with vomiting, unspecified dr5 Forms: - Medication Reconciliation Form dr5 - SBAR form dr5 - Leadership Thank You Letter dr5 Signatures: Dispatcher [employer] EDMS Montserrat Perez RN RN hb Peltier, Brian, RN RN Marshall Stacy RN RN ll1 Kang Lee MD MD jr Henri Lopez, MOLD CARRIER-C MOLD CARRIER-Cdr5 Corrections: (The following items were deleted from the chart) 08:25 08:25 CBC+H.LAB.BRZ ordered. EDMS EDMS 08:25 08:25 PROBNP+C.LAB.BRZ ordered. EDMS EDMS 08:25 08:25 Troponin High Sensitivity+C.LAB.BRZ ordered. EDMS EDMS 08:25 08:25 COMPREHENSIVE METABOLIC PANEL+C.LAB.BRZ ordered. EDMS EDMS 08:25 08:25 Chest Single View+RAD.RAD.BRZ ordered. EDMS EDMS 10:56 10:23 [address] dr5 dr5 10:56 10:23 Stable dr5 dr5 10:56 10:23 Gastro-esophageal reflux disease without esophagitis dr5 dr5 10:56 10:23 Dental root caries dr5 dr5 15:00 11:56 dr5 ll1
[2024-10-19] MEDS ORDERED: MAGNES/ALUMIN/SIMET 30ML UCUP ONE (10:38)
[2024-10-19] MEDS ORDERED: LIDOCAINE VISCOUS 2% 10ML ORAL SOLN ONE (10:39)
--- NOTE | 2024-10-19 11:47 | RAD REPORT ---
EXAMINATION: Abdomen Pelvis W Contrast CLINICAL INDICATION: Female, 44 years old.ABD PAIN TECHNIQUE: CT abdomen and pelvis was performed, after the administration of IV contrast, as [facility]. Axial, sagittal and coronal reconstructions were obtained. One or more of the following dose reduction techniques were used: Automated exposure control, adjustment of the mA and/o r kV according to patient size, and/or iterative reconstruction. Unless otherwise specified, incidental findings do not require dedicated imaging follow-up. [id number]. COMPARISON: No prior exams FINDINGS: LOWER CHEST: No acute process identified.No significant pericardial effusion. Coronary stents. UPPER GI: No significant abnormality. LIVER: Hepatic steatosis, but otherwise unremarkable. GALLBLADDER/BILE DUCTS: Possible cholelithiasis. No CT evidence of acute cholecystitis.? PANCREAS: No mass, ductal dilation, or litzy-pancreatic fluid. SPLEEN: Unremarkable. ADRENALS: No adrenal masses. KIDNEYS AND URETERS: No hydronephrosis.No suspicious renal mass.No renal calculi.No ureteral calculi. ABDOMINAL AORTA AND OTHER VESSELS: Normal caliber aorta and IVC. PERITONEUM: No abnormal free fluid. No free air. LYMPH NODES: No pathologic lymphadenopathy. ABDOMINAL WALL: Unremarkable SMALL BOWEL/COLON: Scattered areas of colonic wall thickening, best seen at the splenic flexure. Insp issated stool present at the ascending, transverse, and descending colon.. URINARY BLADDER: Underdistended but grossly unremarkable. REPRODUCTIVE ORGANS: Uterus surgically absent. No adnexal abnormality. MUSCULOSKELETAL: No acute or suspicious osseous abnormality. ADDITIONAL FINDINGS: None. IMPRESSION: Scattered areas of wall thickening of the colon consistent with the presence of a colitis. Moderate v olume of inspissated stool at the ascending, transverse, and descending colon without evidence of bowel obstruction or fecal impaction.
[2024-10-19] MEDS ORDERED: SODIUM CHLORIDE 0.9% 10ML INJ IV PRN (14:14)
[2024-10-19 15:55] VITALS: O2SAT 100
[2024-10-19 16:57] VITALS: BMI 30.4
[2024-10-19] MEDS: METRONIDAZOLE 500mg IVPB 500 MG/100 ML BAG IV SCH (17:04)
[2024-10-19] MEDS: NA CHLORIDE 0.9% 1,000 ML IV SCH (17:05)
--- NOTE | 2024-10-19 19:32 | P.HP ---
Certification for Inpatient Patient admitted to: Observation With expected LOS: <2 Midnights Patient will require the following post-hospital care: None Practitioner: I am a practitioner with admitting privileges, knowledge of patient current condition, hospital course, and medical plan of care. Services: Services provided to patient in accordance with Admission requirements found in Title 42 Section 412.3 of the Code of Federal Regulations Patient History Date of Service: 10/19/24 Reason for admission: Colitis, constipation History of Present Illness: Priscilla Peng 44 year old female with pmhx Hypertension, CAD status post stent placement, who presents to the ED with nausea vomiting. She reports attempting to go with GI clinic but needed a cardiac clearance in order to further evaluate with a scope. She also reports a tooth extraction needed but needed her cardiac clearance prior to intervention. She had a heart cath on 10/01/24 with stent placed right PDA. She reports nausea vomiting for several months. She performed enema prior to arrival to the ED and has had 2 diarrheas at time of admission. CT abdomen pelvis reports "Scattered areas of wall thickening of the colon consistent with the presence of a colitis. Moderate volume of inspissated stool at the ascending, transverse, and descending colon without evidence of bowel obstruction or fecal impaction." Laboratory evaluation significant for sodium 133, serum glucose 132, lipase 36, troponin 7.0. Priscilla will be admitted to hospitalist service for further evaluation of colitis. Allergies No Known Allergies Allergy (Verified 10/19/24 15:48) Home Medications: Atorvastatin Calcium 40 mg PO DAILY 10/19/24 Cyanocobalamin (Vitamin B-12) [Vitamin B12] 1,000 mcg PO DAILY 10/19/24 Gabapentin 100 mg PO BID 10/19/24 Levothyroxine [Synthroid] 112 mcg PO [id number] 10/19/24 Ondansetron [Zofran] 4 mg PO Q6H PRN 10/19/24 - Past Medical/Surgical History Has patient received pneumonia vaccine in the past: No Diabetic: No -: HTN -: CAD s/p stent placement -: CAD s/p stent placement - Family History Family History: Reviewed- Non-Contributory - Social History Smoking Status: Never smoker Alcohol use: No CD- Drugs: No Caffeine use: No Place of Residence: Home Review of Systems Other: Per HPI Physical Examination - Vital Signs Temperature: 98.7 F Blood Pressure: 119/84 Pulse: 88 Respirations: 16 Pulse Ox (%): 100 - Physical Exam General: Alert, In no apparent distress, Oriented x3 HEENT: Atraumatic, Normocephalic Neck: 2+ carotid pulse no bruit Respiratory: Clear to auscultation bilaterally, Normal air movement Cardiovascular: Normal pulses, Regular rate/rhythm Gastrointestinal: Normal bowel sounds, Soft and benign Musculoskeletal: No clubbing Integumentary: No rashes Neurological: Normal speech, Normal tone - Studies Laboratory Data (last 24 hrs) 10/19/24 10/19/24 10/19/24 08:30 08:30 08:30 WBC 10.00 Hgb 12.2 Hct 37.1 Plt Count 315 Sodium 133 L Potassium 3.5 BUN 16 Creatinine 0.98 Glucose 132 H Total Bilirubin 0.8 AST 18 ALT 18 Alkaline Phosphatase 85 Lipase 36 Assessment and Plan - Plan Assessment and plan Acute colitis/constipation Nausea/ vomiting Diarrhea s/p enema at home - Dr. Flores consulted - Monitor electrolytes closely - N.p.o., will advance diet as tolerated - Cipro Flagyl - Gentle IV fluid - Protonix - Zofran - Continuous telemetry Hypertension CAD status post stent placement -Continue home medications as appropriate DVT PPx SCDs Full code LOS 24-hour OBS Discharge Plan: Home Plan to discharge in: 24 Hours - Advance Directives Does patient have a Living Will: No Does patient have a Durable POA for Healthcare: No Time Spent Managing Pts Care (In Minutes): 55
[2024-10-19] MEDS: PANTOPRAZOLE 40 MG INJ IVP SCH (21:13)
[2024-10-19] MEDS: CIPROFLOXACIN 400mg IV 400 MG/200 ML BAG IV SCH (21:14)
[2024-10-20] MEDS: LEVOTHYROXINE SOD 0.112 MG TAB PO SCH (03:33)
[2024-10-20 07:22] LABS: Anion Gap 11.2 mEq/L (5.0-15.0); BUN Blood Urea Nitrogen 11.0 mg/dL (7-18); Glucose Level 116.0 mg/dL (74-106); Magnesium 2.0 mg/dL (1.6-2.4); Potassium 4.2 mEq/L (3.5-5.1)
[2024-10-20 07:26] LABS: Absolute Lymphocytes (CBC) 1.8 K/uL (0.7-4.9); Hematocrit 30.9 % (36.0-45.0); Hemoglobin 10.3 g/dL (12.0-15.0); MCH 26.4 pg (27.0-35.0); MCHC 33.3 g/dL (32.0-36.0); MCV 79.3 fL (80-100); MPV 11.5 fL (7.6-11.3); Nucleated RBC Absolute Count 0.0 (0-0); Nucleated Red Blood Cells % 0.1 % (0-0); RBC Red Blood Cell Count 3.90 M/uL (3.86-4.86); White Blood Count 9.20 thou/uL (4.3-10.9)
[2024-10-20] MEDS: ASPIRIN EC 81 MG TAB PO SCH ×2 (09:55→10:42)
[2024-10-20] MEDS: CLOPIDOGREL 75 MG TABLET PO SCH ×2 (09:55→10:42)
--- NOTE | 2024-10-20 11:31 | P.DS ---
Admission Date: 10/19/24 Discharge Date: 10/20/24 Disposition: ROUTINE DISCHARGE Discharge Condition: GOOD Reason for Admission: Colitis, constipation Brief History of Present Illness: Diagnosis Acute colitis/constipation Nausea/ vomiting Diarrhea s/p enema at home Hypertension CAD status post stent placement HPI 10/19/2024 Priscilla Peng 44 year old female with pmhx Hypertension, CAD status post stent placement, who presents to the ED with nausea vomiting. She reports attempting to go with GI clinic but needed a cardiac clearance in order to further evaluate with a scope. She also reports a tooth extraction needed but needed her cardiac clearance prior to intervention. She had a heart cath on 10/01/24 with stent placed right PDA. She reports nausea vomiting for several months. She performed enema prior to arrival to the ED and has had 2 diarrheas at time of admission. CT abdomen pelvis reports "Scattered areas of wall thickening of the colon consistent with the presence of a colitis. Moderate volume of inspissated stool at the ascending, transverse, and descending colon without evidence of bowel obstruction or fecal impaction." Laboratory evaluation significant for sodium 133, serum glucose 132, lipase 36, troponin 7.0. Priscilla will be admitted to hospitalist service for further evaluation of colitis. Hospital Course: Priscilla was admitted for nausea, vomiting, and abdominal pain with an unclear etiology. She reports not being able to keep food and liquids down for 1 month. Her electrolytes have been found to be stable this admission. CT scan showing "Scattered areas of wall thickening of the colon consistent with the presence of a colitis. Moderate volume of inspissated stool at the ascending, transverse, and descending colon without evidence of bowel obstruction or fecal impaction." She reported performing an enema on herself prior to coming to the ED. While in the ED she was able to have diarrhea and then again had diarrhea overnight. Priscilla was seen on morning rounds reported she felt better and was able to tolerate clear liquid diet. Dr. Flores was consulted for further evaluation of CT scan and he cleared her for discharge to follow-up with him in his office. She is also recommended to see Dr. Escoto for appropriate scopes to further evaluate her GI system. She has tolerated antibiotics and will continue antibiotic course at home. Priscilla was evaluated on morning rounds, seen to be hemodynamically stable, comfortably laying on her abdomen in bed, and ready for discharge home with family support. Physical Exam General: Alert and Oriented x3 HEENT: Atraumatic, Normocephalic Neck: 2+ carotid pulse no bruit Respiratory: Clear BBS, Normal air movement, on room air Cardiovascular: Normal pulses, normal sinus rhythm Gastrointestinal: Normal bowel sounds, Soft and benign Musculoskeletal: No clubbing Integumentary: No rashes Neurological: Normal speech, Normal tone Vital Signs/Physical Exam: Temp Pulse Resp BP Pulse Ox 98.7 F 77 20 124/74 100 10/20/24 08:00 10/20/24 08:00 10/20/24 08:00 10/20/24 08:00 10/20/24 08:00 Laboratory Data at Discharge: WBC 9.20 thou/uL (4.3-10.9) 10/20/24 06:41 Hgb 10.3 g/dL (12.0-15.0) L D 10/20/24 06:41 Hct 30.9 % (36.0-45.0) L 10/20/24 06:41 Plt Count 205 thou/uL (152-406) D 10/20/24 06:41 Sodium 137 mEq/L (136-145) D 10/20/24 06:41 Potassium 4.2 mEq/L (3.5-5.1) D 10/20/24 06:41 BUN 11 mg/dL (7-18) 10/20/24 06:41 Creatinine 0.70 mg/dL (0.55-1.02) 10/20/24 06:41 Glucose 116 mg/dL (74-106) H 10/20/24 06:41 Phosphorus 2.9 mg/dL (2.5-4.9) 10/20/24 06:41 Magnesium 2.0 mg/dL (1.6-2.4) 10/20/24 06:41 Total Bilirubin 0.8 mg/dL (0.2-1.0) 10/19/24 08:30 AST 18 U/L (15-37) 10/19/24 08:30 ALT 18 U/L (13-56) 10/19/24 08:30 Alkaline Phosphatase 85 U/L (45-117) 10/19/24 08:30 Lipase 36 U/L (13-75) 10/19/24 08:30 Home Medications: Atorvastatin Calcium 40 mg PO DAILY 10/19/24 Cyanocobalamin (Vitamin B-12) [Vitamin B12] 1,000 mcg PO DAILY 10/19/24 Gabapentin 100 mg PO BID 10/19/24 Levothyroxine [Synthroid*] 112 mcg PO [id number] 10/19/24 Ondansetron [Zofran (Odt)*] 4 mg PO Q6H PRN 10/19/24 Ciprofloxacin HCl [Cipro 500 MG Tablet] 500 mg PO BID 5 Days #10 tab 10/20/24 Clopidogrel Bisulfate [Plavix*] 75 mg PO DAILY 10/20/24 Pantoprazole [Protonix Tab] 40 mg PO BID 10 Days #20 tab 10/20/24 Sennosides [Senna Lax] 17.2 mg PO BID #60 tab 10/20/24 metroNIDAZOLE [Flagyl] 500 mg PO Q8H 5 Days #15 tab 10/20/24 New Medications: Ciprofloxacin HCl [Cipro 500 MG Tablet] 500 mg PO BID 5 Days #10 tab metroNIDAZOLE [Flagyl] 500 mg PO Q8H 5 Days #15 tab Pantoprazole [Protonix Tab] 40 mg PO BID 10 Days #20 tab Sennosides [Senna Lax] 17.2 mg PO BID #60 tab Physician Discharge Instructions: 1. Please call and schedule a follow-up appointment with your PCP in 3-5 days - Please follow-up with your PCP for medication refills/adjustments 2. Please call and schedule a follow-up appointment with Dr. Flores in one week -Dr. Flores will refill any prescriptions this admission that he feels need to be continued 3. Please call and schedule a follow-up appointment with Dr. Escoto next week 4. No continue soft GI diet 5. activity restrictions 6. Return to the ED if symptoms worsen Continue all medications as prescribed by your outside providers. New medications Ciprofloxacin 500 mg twice daily x 5 days Flagyl 500 mg 3 times daily x 5 days Protonix 40 mg twice daily x 10 days Diet: GI soft Activity: Ad julio Followup: George Flores MD [ACTIVE - CAN ADMIT] - Raul Dubon DO [Primary Care Provider] - Pernell España MD [ASSOCIATE-ACTIVE - CAN ADMIT] -
[2024-10-20 12:08] VITALS: BP 115/58; TEMP 98.5
== END 2024-10-20 12:51 | disposition home or self-care (01) ==
LOC: ER 08:09 → ERHOLD 14:14 → 2ND 14:59
PROVIDERS: ADMIT Internal Medicine; ATTEND Internal Medicine
DX: K52.9 Noninfective gastroenteritis and colitis, unspecified (principal); K59.00 Constipation, unspecified; I10 Essential (primary) hypertension; I25.10 Atherosclerotic heart disease of native coronary artery without angina pectoris; R11.2 Nausea with vomiting, unspecified; R10.9 Unspecified abdominal pain; Z95.5 Presence of coronary angioplasty implant and graft
CPT/HCPCS: 96361; 93005; 85025 ×2; 80048; 36415; 83735; 84100; 82947; 84484 ×3; 83690; 80053; 83880; 74177; 71045; 96375; 96374; 99285; Q9967; J2550; J2470 ×2; J2405; J0744 ×2; J1790; J7030 ×3; G0378 ×3